=== PATIENT | female | born 1990 | race Caucasian/White ===

== ENCOUNTER 2024-10-22 21:07 | Emergency (ER) | payer MEDICAID ==
[~2024-10-22] VITALS: Ht 167.6 cm; Wt 80.0 kg
[2024-10-22 21:16] VITALS: O2SAT 98
[2024-10-22] MEDS: PANTOPRAZOLE 40MG DR TABLET PO ONE (22:22)
[2024-10-22] MEDS: ACETAMINOPHEN 325MG TABLET PO ONE (22:22)
[2024-10-22] MEDS: ONDANSETRON HCL 4MG TABLET PO ONE (22:22)
[2024-10-22 22:37] LABS: BASOPHILS % 0.6 % (0.0-2.0); EOSINOPHILS % 7.2 % (0.0-5.0); HEMATOCRIT. 30.3 % (36.0-48.0); HEMOGLOBIN. 10.5 g/dL (12.0-16.0); MEAN CORPUSCULAR HEMOGLOBIN 30.1 pg (28.0-32.0); MEAN CORPUSCULAR HGB CONC 34.8 g/dL (31.0-37.0); MEAN CORPUSCULAR VOLUME 86.5 fL (81.0-99.0); MEAN PLATELET VOLUME 6.4 fl (7.4-10.4); MONOCYTES % 3.6 % (2.0-8.0); NEUTROPHILS % 57.6 % (40.0-76.0); PLATELET 317 x1000/uL (130-400); RED CELL DISTRIBUTION WIDTH 13.1 % (11.6-14.6); WHITE BLOOD COUNT 10.9 x1000/uL (4.5-11.0)
[2024-10-22 22:38] LABS: CARBON DIOXIDE 26 mEq/L (21-32); CHLORIDE 105 mEq/L (98-107); POTASSIUM 3.5 mEq/L (3.5-5.1); SODIUM 139 mEq/L (136-145)
[2024-10-22 22:39] LABS: CALCIUM 9.3 mg/dL (8.7-10.4)
[2024-10-22 22:44] LABS: CREATININE 0.6 mg/dL (0.6-1.0); GLUCOSE 119 mg/dL (70-105); HCG SCREEN NEGATIVE; UREA NITROGEN BLOOD 9 mg/dL (9-23)
[2024-10-22 22:45] LABS: ALANINE AMINOTRANSFERASE 40 IU/L (10-49); ALBUMIN 4.4 g/dL (3.2-4.8); ASPARTATE AMINOTRANSFERASE 28 IU/L (<34)
[2024-10-22 22:46] LABS: BILIRUBIN DIRECT 0.2 mg/dL (<=3.0); BILIRUBIN TOTAL 0.7 mg/dL (0.1-1.0); PROTEIN TOTAL 7.6 g/dL (6.0-8.3)
[2024-10-23] MEDS ORDERED: TOPUD PO (01:05)
[2024-10-23] MEDS ORDERED: MAG-55 MT (01:05)
[2024-10-23] MEDS ORDERED: FAMO-135 MT (01:05)
[2024-10-23 01:09] LABS: COLOR URINE YELLOW (YELLOW)
[2024-10-23 01:10] LABS: CLARITY URINE CLEAR (CLEAR)
[2024-10-23 01:11] LABS: GLUCOSE URINE NEGATIVE (NEGATIVE); PH URINE 6.5 (4.5-8.0); PROTEIN URINE NEGATIVE (NEGATIVE)
[2024-10-23 01:12] LABS: KETONES URINE NEGATIVE (NEGATIVE); LEUKOCYTE ESTERASE URINE TRACE (NEGATIVE); NITRITE URINE NEGATIVE (NEGATIVE); OCCULT BLOOD URINE NEGATIVE (NEGATIVE); UROBILINOGEN URINE 0.2 E.U./dL (0.2-1.0)
[2024-10-23 01:24] LABS: SQUAMOUS EPITHELIAL CELL URINE FEW /lpf (RARE/1+)
[2024-10-23 01:25] LABS: BACTERIA URINE NONE SEEN; RBC URINE 0-2 /hpf (0-2); WBC URINE 0-2 /hpf (0-2)
[2024-10-23 01:44] VITALS: BP 149/89; PULSE 76; RESP 18; TEMP 37; O2SAT 98
== END 2024-10-23 01:46 | disposition home or self-care (01) ==
LOC: ER 21:07
DX: R11.2 Nausea with vomiting, unspecified (principal); K29.70 Gastritis, unspecified, without bleeding; Z20.822 Contact with and (suspected) exposure to COVID-19
CPT/HCPCS: 99284; 74176; 71045; 87426; 80076; 80048; 84703; 83690; 85025; 87804 ×2; 36415; 81003; Q0162